=== PATIENT | male | born 1990 | race Two or more races ===

== ENCOUNTER 2025-05-04 10:15 | Inpatient (IN) | payer OTHER ==
[~2025-05-04] VITALS: Ht 165.1 cm; Wt 98.4 kg
[2025-05-04 10:48] VITALS: BP 128/86
[2025-05-04] MEDS ORDERED: BIOTIN1 MG PO (10:48)
[2025-05-07] MEDS ORDERED: CEFTRIAXONE SODIUM 2,000 MG VIAL ONE (06:57)
[2025-05-07] MEDS ORDERED: METRONIDAZOLE/SODIUM CHLORIDE 500 MG/100 ML PIGGYBACK IV ONE ×2 (06:57→11:01)
[2025-05-07] MEDS ORDERED: SUGAMMADEX SODIUM 200 MG/2 ML VIAL IV ONE (09:45)
[2025-05-07] MEDS ORDERED: FAMOTIDINE/PF 20 MG/2 ML VIAL IV PUSH SCH (09:59)
[2025-05-07] MEDS ORDERED: TAMSULOSIN HCL 0.4 MG CAP PO SCH (10:00)
[2025-05-07] MEDS ORDERED: MORPHINE SULFATE 4 MG/ML CARTRIDGE IV PRN (10:00)
[2025-05-07] MEDS ORDERED: ONDANSETRON HCL 2 MG/ML VIAL IV PRN (10:00)
[2025-05-07] MEDS ORDERED: OxyCODONE HCL 5 MG TABLET (ROXICODONE) PO PRN (10:00)
[2025-05-07] MEDS ORDERED: CIPROFLOXACIN IN 5 % DEXTROSE 400 MG/200 ML PIGGYBAG IV SCH (10:00)
[2025-05-07] MEDS ORDERED: METRONIDAZOLE/SODIUM CHLORIDE 500 MG/100 ML PIGGYBACK IV SCH (10:00)
[2025-05-07] MEDS ORDERED: RINGERS SOLUTION,LACTATED 1,000 ML IV SCH (10:00)
[2025-05-07] MEDS ORDERED: LACTOBACILLUS ACIDOPHILUS 1 CAP CAP PO SCH (10:00)
[2025-05-07] MEDS ORDERED: MORPHINE SULFATE 4 MG/ML VIAL IV ONE ×2 (10:45→11:40)
[2025-05-07] MEDS ORDERED: CIPROFLOXACIN IN 5 % DEXTROSE 400 MG/200 ML PIGGYBAG IV ONE (11:01)
[2025-05-07] MEDS ORDERED: FAMOTIDINE/PF 20 MG/2 ML VIAL ONE (11:02)
[2025-05-07] MEDS ORDERED: ENALAPRILAT DIHYDRATE 1.25 MG/ML VIAL IV ONE ×2 (11:42→11:45)
[2025-05-07] MEDS ORDERED: ACETAMINOPHEN 500 MG GEL..CAP PO SCH (12:00)
[2025-05-07 13:00] VITALS: BP 146/89; O2SAT 98
[2025-05-07] MEDS ORDERED: HYOSCYAMINE SULFATE 0.125 MG TAB.SUBL SL SCH (13:00)
[2025-05-07] MEDS ORDERED: KETOROLAC TROMETHAMINE 30 MG VIAL IM PRN (13:15)
[2025-05-07] MEDS ORDERED: GABAPENTIN 300 MG CAPSULE PO SCH (17:00)
[2025-05-07 17:59] VITALS: BP 138/84; O2SAT 98
[2025-05-08 08:02] LABS: BASO % 0.2 % (0.1-1.2); EOS # 0.02 (0.04-0.54); EOS % 0.2 % (0.7-7.0); LYMPH # 1.70 (1.18-3.74); LYMPH % 14.3 % (19.3-53.1); MEAN PLATELET VOLUME 9.80 fl (9.4-12.4); MONO # 0.74 (0.24-0.82); MONO % 6.2 % (4.7-12.5); NEUT # 9.32 (1.56-6.13); NEUT % 78.6 % (34.0-71.1); RED CELL DISTRIBUTION WIDTH 12.4 % (11.6-14.4)
[2025-05-08 08:15] VITALS: BP 122/93; O2SAT 95
[2025-05-08 08:36] LABS: BUN CREA RATIO 10.0 (7.0-25.0); CREATININE SERUM 0.8 mg/dL (0.70-1.30); GFR 110.01; GLUCOSE FASTING 94.0 mg/dL (65-100); OSMOLALITY SERUM 277.0 MOSM/KG (275-295)
[2025-05-08 16:00] VITALS: BP 125/73; O2SAT 98
[2025-05-08] MEDS ORDERED: ENOXAPARIN SODIUM 40 MG/0.4 ML SYRINGE SUBCUTANEO SCH (17:00)
[2025-05-09 00:17] VITALS: BP 130/87; O2SAT 100
[2025-05-09 08:45] VITALS: BP 139/91; O2SAT 97
[2025-05-09] MEDS ORDERED: ENOXAPARIN SODIUM 40 MG/0.4 ML SYRINGE SUBCUTANEO SCH (09:00)
[2025-05-09 16:00] VITALS: BP 129/82; O2SAT 96
[2025-05-09 23:59] VITALS: BP 136/85; O2SAT 98
[2025-05-10 08:33] VITALS: BP 126/79; O2SAT 96
[2025-05-10 16:00] VITALS: BP 128/85; O2SAT 99
[2025-05-10] MEDS ORDERED: HYOSCYAMINE0.125 M1 SL (16:46)
[2025-05-10] MEDS ORDERED: INTESTINEX680 M1 PO (16:47)
== END 2025-05-10 18:30 | disposition home or self-care (01) | DRG 330 ==
LOC: O/R 05-07 06:00 → SURG 05-07 07:00 → SURH 05-07 12:19
PROVIDERS: ADMIT Surgery; ATTEND Surgery
PROC: 0DBP4ZZ Excision of Rectum, Percutaneous Endoscopic Approach (ICD-10-PCS; 2025-05-07)
PROC: 0TQB4ZZ Repair Bladder, Percutaneous Endoscopic Approach (ICD-10-PCS; 2025-05-07)
PROC: 0DJD8ZZ Inspection of Lower Intestinal Tract, Via Natural or Artificial Opening Endoscopic (ICD-10-PCS; 2025-05-07)
PROC: 0DTN4ZZ Resection of Sigmoid Colon, Percutaneous Endoscopic Approach (ICD-10-PCS; principal; 2025-05-07 07:00)
PROC: BW2GYZZ Computerized Tomography (CT Scan) of Pelvic Region using Other Contrast (ICD-10-PCS; 2025-05-09)
DX: K57.32 Diverticulitis of large intestine without perforation or abscess without bleeding (principal); N32.1 Vesicointestinal fistula